=== PATIENT | male | born 1955 | race American Indian/Alaskan Native ===

== ENCOUNTER 2017-04-15 15:05 | Emergency (ER) | payer BC ==
[2017-04-15] MEDS ORDERED: NACL 0.9% 500 ML 500 ML IV ONE (16:55)
[2017-04-15 17:15] LABS: Blood Urea Nitrogen 12 mg/dL (9-20); Calcium 8.9 mg/dL (8.4-10.2); Carbon Dioxide 21 mmol/L (22-30); Chloride 101.1 mmol/L (98-107); Glucose 134 mg/dL (75-100); Sodium 139 mmol/L (137-145)
[2017-04-15 17:17] LABS: Basophils % (Auto) 0.7 % (0.0-1.8); Eosinophils % (Auto) 0.5 % (0.0-4.3); Hematocrit 45.5 % (35.5-45.6); Hemoglobin 14.7 gm/dl (11.8-15.2); Mean Corpuscular HGB Conc 32 % (32-34); Mean Corpuscular Hemoglobin 29 pg (28-32); Mean Corpuscular Volume 90 fl (84-94); Platelet Count 212 K/mm3 (140-440); Red Blood Count 5.06 M/mm3 (3.65-5.03); Red Cell Distribution Width 13.4 % (13.2-15.2); White Blood Count 7.1 K/mm3 (4.5-11.0)
[2017-04-15 17:19] LABS: Anion Gap 22 mmol/L; Potassium 5.4 mmol/L (3.6-5.0)
[2017-04-15] MEDS ORDERED: NACL 0.9% 1000 ML 1,000 ML IV ONE (18:39)
--- NOTE | 2017-04-15 18:44 | Emergency Department Report ---
ED General Adult HPI - General Chief complaint: Chest Pain Stated complaint: HI Time Seen by Provider: 04/15/17 16:43 Source: patient, family, EMS, RN notes reviewed Mode of arrival: Stretcher Limitations: No Limitations - History of Present Illness Initial comments: This is a 61-year-old male. He is previously unknown to me. Primary care Dr.: Dr. Paolo Tate Brass Cleaner: Dr. patti red ([facility]) Past medical history: Hypertension, heart disease, CABG, stents Patient reports that he takes aspirin and Plavix on a daily basis. No recent cardiac catheterization, echocardiogram or stress test. Patient is brought to the hospital by EMS. As per EMS documentation, patient indicated that he became dizzy, and "almost passed out." Patient associated this with diaphoresis. Patient indicates that this lasted around 10 minutes. The patient currently denies headache, neck pain, chest pain, abdominal pain, shortness of breath, blurry vision, loss of vision. The patient does indicate that he felt a sensation of room spinning/vertigo which has since resolved. Patient denies tinnitus, change in auditory acuity, recent upper respiratory tract infections. Patient currently denies headache, neck pain, chest pain, abdominal pain, shortness of breath, denies all complaint. There is no leg pain. There is no leg swelling. No recent trips greater than 4 hours. No recent hospital admissions. Patient indicated to EMS that the pain "felt like last heart attack he had." -: Sudden, minutes(s) Severity scale (0 -10): 0 Improves with: none Worsens with: none Associated Symptoms: diaphoresis, syncope (near syncope). denies: confusion, chest pain, cough, shortness of breath - Related Data Home Medications Medication Instructions Recorded Confirmed Last Taken Aspirin [Adult Low Dose Aspirin EC] 81 mg PO DAILY 04/15/17 04/15/17 04/15/17 AtorvaSTATin 80 mg PO DAILY 04/15/17 04/15/17 04/15/17 Cilostazol [Pletal] 100 mg PO BID 04/15/17 04/15/17 04/15/17 Clopidogrel Bisulfate [Plavix] 75 mg PO DAILY 04/15/17 04/15/17 04/15/17 Gabapentin [Neurontin] 300 mg PO Q8HR 04/15/17 04/15/17 04/15/17 ISOSORBIDE MONOnitrate [Imdur ER] 30 mg PO DAILY 04/15/17 04/15/17 04/15/17 Linagliptin [Tradjenta] 5 mg PO QDAY 04/15/17 04/15/17 04/15/17 Metformin HCl [Glucophage] 1,000 mg PO BID 04/15/17 04/15/17 04/15/17 Metoprolol Xl [Metoprolol 50 mg PO BID 04/15/17 04/15/17 04/15/17 SUCCINATE ER TAB] Ramipril 10 mg PO QDAY 04/15/17 04/15/17 04/15/17 Ranolazine [Ranexa] 500 mg PO BID 04/15/17 04/15/17 04/15/17 amLODIPine [Norvasc] 5 mg PO DAILY 04/15/17 04/15/17 04/15/17 Allergies Allergy/AdvReac Type Severity Reaction Status Date / Time No Known Allergies Allergy Unverified 04/15/17 16:18 ED Review of Systems ROS: Stated complaint: HI Other details as noted in HPI Constitutional: diaphoresis. denies: fever Eyes: denies: eye pain, eye discharge ENT: denies: ear pain, throat pain, dental pain, hearing loss, epistaxis Respiratory: denies: cough Cardiovascular: denies: chest pain Gastrointestinal: denies: vomiting Genitourinary: denies: dysuria Musculoskeletal: denies: back pain Skin: denies: lesions Neurological: weakness, vertigo Psychiatric: as per HPI ED Past Medical Hx - Medications Home Medications: Home Medications Medication Instructions Recorded Confirmed Last Taken Type Aspirin [Adult Low Dose Aspirin EC] 81 mg PO DAILY 04/15/17 04/15/17 04/15/17 History AtorvaSTATin 80 mg PO DAILY 04/15/17 04/15/17 04/15/17 History Cilostazol [Pletal] 100 mg PO BID 04/15/17 04/15/17 04/15/17 History Clopidogrel Bisulfate [Plavix] 75 mg PO DAILY 04/15/17 04/15/17 04/15/17 History Gabapentin [Neurontin] 300 mg PO Q8HR 04/15/17 04/15/17 04/15/17 History ISOSORBIDE MONOnitrate [Imdur ER] 30 mg PO DAILY 0504/15/17 04/15/17 History Linagliptin [Tradjenta] 5 mg PO QDAY 04/15/17 04/15/17 04/15/17 History Metformin HCl [Glucophage] 1,000 mg PO BID 04/15/17 04/15/17 04/15/17 History Metoprolol Xl [Metoprolol 50 mg PO BID 04/15/17 04/15/17 04/15/17 History SUCCINATE ER TAB] Ramipril 10 mg PO QDAY 04/15/17 04/15/17 04/15/17 History Ranolazine [Ranexa] 500 mg PO BID 04/15/17 04/15/17 04/15/17 History amLODIPine [Norvasc] 5 mg PO DAILY 04/15/17 04/15/17 04/15/17 History ED Physical Exam - General Limitations: No Limitations General appearance: alert, in no apparent distress - Head Head exam: Present: atraumatic, normocephalic - Eye Eye exam: Present: normal appearance, PERRL, EOMI, other (there are no visual field cuts at this time.visual acuity intact to finger counting, color perception, reading at a close distance). Absent: nystagmus - ENT ENT exam: Present: normal exam, normal orophraynx, mucous membranes moist, normal external ear exam - Neck Neck exam: Present: normal inspection, full ROM. Absent: tenderness, meningismus - Respiratory Respiratory exam: Present: normal lung sounds bilaterally. Absent: respiratory distress, wheezes, rales, rhonchi, stridor, chest wall tenderness, accessory muscle use, decreased breath sounds, prolonged expiratory - Cardiovascular Cardiovascular Exam: Present: regular rate, normal rhythm, normal heart sounds. Absent: bradycardia, tachycardia, irregular rhythm, systolic murmur, diastolic murmur, rubs, gallop - GI/Abdominal GI/Abdominal exam: Present: soft, normal bowel sounds. Absent: distended, tenderness, guarding, rebound, rigid, pulsatile mass - Rectal Rectal exam: Present: deferred - Extremities Exam Extremities exam: Present: normal inspection, full ROM, normal capillary refill. Absent: tenderness, pedal edema, joint swelling, calf tenderness - Back Exam Back exam: Present: normal inspection, full ROM. Absent: tenderness, CVA tenderness (R), CVA tenderness (L), muscle spasm, paraspinal tenderness, vertebral tenderness - Neurological Exam Neurological exam: Present: alert, oriented X3, normal gait (normal gait. Normal tandem gait. Negative pronator drift. Normal [id number]. Negative Romberg examination), other (Extraocular movements intact. Tongue midline. No facial droop. Facial sensation intact to light touch in the V1, V2, V3 distribution bilaterally. 5 and 5 strength in 4 extremities.. Sensation is intact to light touch in 4 extremities.). Absent: motor sensory deficit - Psychiatric Psychiatric exam: Present: normal affect, normal mood - Skin Skin exam: Present: warm, dry, intact, normal color. Absent: rash ED Course Vital Signs 04/15/17 04/15/17 04/15/17 16:06 16:12 16:17 Temperature 97.8 F 97.8 F Pulse Rate 73 67 Respiratory 26 H 17 Rate Blood Pressure 114/74 Blood Pressure 114/74 [Left] O2 Sat by Pulse 97 98 98 Oximetry 04/15/17 04/15/17 04/15/17 16:19 17:00 18:00 Temperature Pulse Rate 63 Respiratory 17 17 Rate Blood Pressure 112/79 112/79 Blood Pressure [Left] O2 Sat by Pulse 98 98 Oximetry 04/15/17 20:20 Temperature Pulse Rate 79 Respiratory 18 Rate Blood Pressure Blood Pressure 122/77 [Left] O2 Sat by Pulse 99 Oximetry - Reevaluation(s) Reevaluation #1: 04/15/17 18:43 Differential diagnosis: Arrhythmia, structural cardiac disease, acute coronary syndrome, transient ischemic attack, electrolyte derangement Assessment and plan: 61-year-old male with history of dizziness, sensation of near syncope, vertigo, diaphoresis. No pulmonary embolus or DVT risk factors, low risk by well's criteria. He has a GCS of 15, with an NIH score of 0. Laboratory studies unremarkable EKG abnormal, however not having chest pain, not morphologically consistent with STEMI. X-ray of the chest pending, noncontrast CT scan of the brain is pending. Plan to admit once initial data points back. Reevaluation #2: 04/15/17 20:05 laboratory studies reviewed. Patient's repeat neurologic examination is unremarkable and unchanged. Noncontrast CT scan of the brain is negative. I recommended admission to the patient for his diaphoresis, near syncope. The patient is refusing admission at this time. The patient is going to sign out AGAINST MEDICAL ADVICE. The patient is alert and oriented 3. He exhibits decision-making capacity. He is free from distracting injury. The risks of leaving, including , disability, paralysis, loss of quality of life are reviewed with the patient. He verbalizes understanding. This conversation was witnessed by the patient's , and RN Ilene almodovar The patient is instructed that he can return to the ER right away if and when he changes his mind. ED Medical Decision Making - Lab Data Result diagrams: 04/15/17 16:40 04/15/17 16:40 Vital Signs 04/15/17 04/15/17 04/15/17 16:12 16:17 16:19 Temperature 97.8 F 97.8 F Pulse Rate 73 67 Respiratory 26 H 17 17 Rate Blood Pressure 114/74 Blood Pressure 114/74 [Left] O2 Sat by Pulse 98 98 98 Oximetry Lab Results 04/15/17 04/15/17 Range/Units 16:40 16:40 WBC 7.1 (4.5-11.0) K/mm3 RBC 5.06 H (3.65-5.03) M/mm3 Hgb 14.7 (11.8-15.2) gm/dl Hct 45.5 (35.5-45.6) % MCV 90 (84-94) fl MCH 29 (28-32) pg MCHC 32 (32-34) % RDW 13.4 (13.2-15.2) % Plt Count 212 (140-440) K/mm3 Lymph % (Auto) 20.2 (13.4-35.0) % Allen % (Auto) 5.8 (0.0-7.3) % Eos % (Auto) 0.5 (0.0-4.3) % Baso % (Auto) 0.7 (0.0-1.8) % Lymph # 1.4 (1.2-5.4) K/mm3 Allen # 0.4 (0.0-0.8) K/mm3 Eos # 0.0 (0.0-0.4) K/mm3 Baso # 0.0 (0.0-0.1) K/mm3 Seg Neutrophils % 72.8 H (40.0-70.0) % Seg Neutrophils # 5.1 (1.8-7.7) K/mm3 Sodium 139 (137-145) mmol/L Potassium 5.4 H (3.6-5.0) mmol/L Chloride 101.1 (98-107) mmol/L Carbon Dioxide 21 L (22-30) mmol/L Anion Gap 22 mmol/L BUN 12 (9-20) mg/dL Creatinine 1.0 (0.8-1.5) mg/dL Estimated GFR > 60 ml/min BUN/Creatinine Ratio 12.00 % Glucose 134 H (75-100) mg/dL Calcium 8.9 (8.4-10.2) mg/dL Troponin T < 0.010 (0.00-0.029) ng/mL - EKG Data -: EKG Interpreted by Me EKG shows normal: sinus rhythm - EKG Data When compared to previous EKG there are: previous EKG unavailable 04/15/17 18:44 EKG #1: Normal sinus, 68 bpm, motion artifact, normal axis, nonspecific ST abnormality 1 and aVL, T-wave inversion in lead 3, limited by motion artifact, no chest pain, not morphologically consistent with STEMI. EKG #2: Sinus, 67 beats per minute, borderline left axis deviation, nonspecific ST abnormality, not morphologically consistent with STEMI, patient not having chest pain. - Radiology Data Radiology results: pending, report reviewed, image reviewed X-ray the chest demonstrate median sternotomy, no acute disease. Noncontrast CT scan of the brain is negative. Critical care attestation.: If time is entered above; I have spent that time in minutes in the direct care of this critically ill patient, excluding procedure time. ED Disposition Clinical Impression: Dizziness, Abnormal EKG Disposition: LEFT AGAINST MEDICAL ADVICE Is pt being admited?: No Does the pt Need Aspirin: No Condition: Undetermined Additional Instructions: As we discussed, you have left the hospital/emergency room AGAINST MEDICAL ADVICE. By leaving, you risked , disability, paralysis, permanent loss of quality of life. The ER is open 24 hours a day, 7 days a week. It never closes. Please return to the emergency room right away if and when you change your mind. If you decide not to return to the emergency room, please follow-up with the listed physician referrals as soon as possible. Referrals: PAOLO FUENTES [Other] - 3-5 Days DEBORAH WANG MD [Staff Physician] - 3-5 Days MAKENZIE KWOK MD [Staff Physician] - 3-5 Days
--- NOTE | 2017-04-15 18:50 | Admit Criteria Form ---
Admission Criteria Documentation: CARDIOLOGY GRG Clinical Indications for Admission to Inpatient Care ( Place 'X' for any and all applicable criteria): Hospital admission is needed for appropriate care of the patient because of ANY ONE of the following (1): [ ] I. Hemodynamic instability as indicated by ALL of the following (1)(2)(3) (4)(5) [ ]a) Vital signs or other findings not as expected for chronic patient condition or baseline [ ]b) Instability indicated by ANY ONE of the following: [ ]i) Hypotension [ ]ii) Symptomatic Tachycardia unresponsive to treatment ( e.g., analgesia, fluids, sedation as indicated) [ ]iii) Inadequate perfusion indicated by ANY ONE of the following: [ ] 1) Lactic acidosis (> 2 mmol/L) [ ] 2) New abnormal capillary refill (> 3 seconds) [ ] 3) Reduced urine output [ ] 4) New altered mental status [ ]iv) Orthostatic vital sign changes unresponsive to treatment (e.g., fluids) [ ]v) IV inotropic or vasopressor medication required to maintain adequate blood pressure or perfusion [ ] II. Severe heart failure as indicated by ANY ONE of the following(17)(18) [ ]a) Respiratory distress [ ]b) Hypotension [ ]c) Anasarca (refractory to outpatient therapy) [ ]d) Cardiac arrhythmias of immediate concern [ ]e) Myocardial ischemia [ ] III. Cardiac arrhythmias or findings of immediate concern indicated by ANY ONE of the following (19)(20): [ ] a) Heart rhythms that are inherently dangerous or unstable indicated by ANY ONE of the following (21)(22)(23): [ ] i) Resuscitated ventricular fibrillation or cardiac arrest [ ] ii) Ventricular escape rhythm [ ] iii) Sustained ventricular tachycardia (30 seconds or more of ventricular rhythm at greater than 100 beats per minute) [ ] iv) Nonsustained ventricular tachycardia and ANY ONE of the following: [ ] 1) Suspected cardiac ischemia as cause or consequence of ventricular tachycardia [ ] 2) In setting of acute myocarditis [ ] b) Unstable cardiac conduction defects indicated by ANY ONE of the following(23)(24)(25) [ ] i) Type II second-degree atrioventricular block [ ]ii) Third-degree atrioventricular block [ ]iii) New-onset left bundle branch block with suspected myocardial ischemia [ ]c) Any heart rhythm and ANY ONE of the following (21)(22)(26)(27) (28) [ ] i) Continuous long-term ECG monitoring needed (e.g., initiation of drug requiring monitoring for more than 24 hours) [ ] ii) Patient has automatic implanted cardioverter defibrillator that is repeatedly firing, malfunctioning, or in need of immediate adjustment of settings beyond the scope of ambulatory or observation care [ ]d) Heart rhythms of concern due to ANY ONE of the following: [ ] i) Hypotension [ ] ii) Respiratory distress [ ] iii) Association with other significant symptoms (e.g., bradycardia with syncope or ongoing dizziness, supraventricular tachycardia with chest pain (14)(15)(17) [ ] IV. Monitoring for cardiac contusion beyond the scope of observation care needed [A](30)(31)(32) [ ] V. Surgical or device complication (e.g., valve replacement complication , pacemaker dysfunction) (35)(41)(44)(45)(46) [ ] . Inpatient palliative care needed. [B](49) Also use Inpatient Palliative Care Criteria [ ] VII. Nonbacterial thrombotic (marantic) endocarditis (36)(43)(47)(48) [X] VIII. Cardiology condition, symptom, or finding for which emergency and observation care has failed or are not considered appropriate. [ ] IX. Acute valvular disease requiring inpatient as indicated by ANY ONE of the following (41) [ ]a) Acute valvular regurgitation (42) [ ]b) Noninfectious valvulitis (43) [ ]c) Obstructive valve thrombosis [ ]d) Paravalvular leak [ ]e) Other significant valvular disorder remaining after emergency or observation level of care (as appropriate) [ ]X. Pericardial disease requiring inpatient treatment as indicated by ANY ONE of the following (33)(34)(35)(36)(37) [ ]a) Suspected tamponade (38)(39)(40) [ ]b) Hemopericardium [ ]c) Other significant pericardial disorder remaining after emergency or observation level of care (as appropriate) [ ] XI. Cardiac ischemia beyond scope of emergency and observation care. [ ] XII. Hypertension requiring inpatient treatment as indicated by ANY ONE of the following (6)(7)(8) [ ]a) SBP greater than 220 mm Hg or DBP greater than 120 mmHg despite treatment [ ]b) SBP greater than 140 mm Hg or DBP greater than 100 mm Hg with evidence of acute end organ damage as indicated by ANY ONE of the following [ ] i) Altered mental status [ ] ii) Acute renal failure as indicated by new onset of ANY ONE of the following (9)(10)(11)(12)(13) [ ]1) 3-fold rise in serum creatinine from baseline [ ]2) Serum creatinine greater than 4 mg/dL ( 354 micromoles/L) with acute rise greater than 0.5 mg/dL (44.2 micromoles/L) [ ]3) Reduction of more than 75% in estimated glomerular filtration rate from baseline [ ]4) Estimated glomerular filtration rate less than 35 mL/min/1.73m2 (0.59 mL/sec/1.73m2) in child up to 18 years of age [ ]5) Cessation of urine output indicated by ALL of the following [ ]A. Adequate volume status [ ]B. Inadequate urine output as indicated by ANY ONE of the following [ ]a. Urine output less than 0.3 mL/kg/hr for 24 hours [ ]b. Anuria (urine output less than 0.1 mL/kg/hr) for 12 hours [ ] iii) Aortic dissection [ ] iv) Myocardial Ischemia [ ] v) Left ventricular heart failure [ ]vi) Retinal Hemorrhage [ ]vii) Other significant finding [ ]c) Hypertension in child requiring inpatient treatment as indicated by ALL of the following(14)(15)(16) [ ] i) Outpatient treatment not effective, not available, or not appropriate [ ]ii) SBP or DBP greater than 95th percentile for age [ ]iii) Evidence of acute end organ damage as indicated by ANY ONE of the following [ ]1) Altered mental status [ ]2) Acute renal failure as indicated by new onset of ANY ONE of the following(9)(10)(11)(12)(13) [ ]A. 3-fold rise in serum creatinine from baseline [ ]B. Serum creatinine greater than 4 mg/dL (354 micromoles/L) with acute rise greater than 0.5 mg/dL (44.2 micromoles/L) [ ]C. Reduction of more than 75% in estimated glomerular filtration rate from baseline [ ]D. Estimated glomerular filtration rate less than 35 mL/min/1.73m2 (0.59 mL/sec/1.73m2) in child up to 18 years of age [ ]E. Cessation of urine output indicated by ALL of the following [ ]a. Adequate volume status [ ]b. Inadequate urine output as indicated by ANY ONE of the following [ ]i) Urine output less than 0.3 mL/kg/hr for 24 hours [ ]ii) Anuria ( urine output less than 0.1 mL/kg/hr) for 12 hours [ ]3) Severe headache [ ]4) Visual disturbance [ ]5) Retinal hemorrhage [ ]6) Other significant finding [ ]XIII. Complications of transplanted heart indicated by ANY ONE of the following(61): [ ]a) Acute graft rejection requiring inpatient management (eg, intravenous immunosuppression)(62)(63) [ ]b) Acute graft heart failure indicated by ANY ONE of the following(64): [ ]i) Hemodynamic instability [ ]ii) Cardiac arrhythmias of immediate concern [ ]iii) Pulmonary edema that is very severe (eg, mechanical ventilation needed, imminent or likely, need for 100% oxygen to keep oxygen saturation above 90%) [ ]iv) Pulmonary edema that is persistent as indicated by ALL of the following: [ ]1) New need for oxygen therapy to keep oxygen saturation above 90% (or increased FiO2 need from baseline) [ ]2) Has not improved sufficiently with emergency department or observation care IV diuretics or other heart failure treatments[E] [ ]v) Altered mental status that is severe or persistent [ ]vi) Increased creatinine (new on laboratory test) with reduction of more than 50% in estimated glomerular filtration rate from baseline [ ]vii) Progressively (ongoing) rising creatinine (known from past laboratory test) with reduction of more than 25% in estimated glomerular filtration rate from baseline [ ]viii) Acute renal failure [ ]ix) Acute peripheral ischemia (eg, examination shows pulseless, cool, mottled, or cyanotic extremity) [ ]x) Pulmonary artery catheter monitoring needed [ ]xi) Other sign or symptom of heart failure requiring inpatient treatment (ie, too severe or not responsive to outpatient and observation care treatment) [ ]c) Infection requiring inpatient management (eg, Hemodynamic instability, need for intravenous antimicrobial treatment)(66)(67)(68)(69)(70) [ ]d) Cardiac allograft vasculopathy requiring inpatient management ( eg evidence of cardiac ischemia)(71) [ ]e) Other complication of transplanted heart (eg, stroke, severe pulmonary hypertension, severe valvular dysfunction) requiring inpatient management(72) The original [facility] [employer] content created by [facility] [employer] has been revised. The portions of the content which have been revised are identified through the use of italic text or in bold, and [facility] has neither reviewed nor approved the modified material. All other unmodified content is copyright [facility] [employer]. Please see references footnoted in the original [facility] [employer] edition 2016
[2017-04-15 19:38] LABS: INR 1.16 (0.87-1.13)
--- NOTE | 2017-04-15 19:57 | Cat Scan Report ---
FINAL REPORT EXAM: CT HEAD/BRAIN WO CON HISTORY: dizzy TECHNIQUE: Standard unenhanced CT of the head at 5.0 millimeter axial increments PRIORS: None. FINDINGS: The ventricular system is normal in size and configuration. There is mild cerebral atrophy of the frontal lobes. There is no evidence for mass lesion, mass effect, midline shift, acute intracranial hemorrhage, or acute ischemia/ infarction. Visualized paranasal sinuses are clear. IMPRESSION: Negative CT of the head. No acute intracranial process noted. Mild frontal lobe atrophy bilaterally.
[2017-04-15 20:21] VITALS: BP 122/77
--- NOTE | 2017-04-16 09:33 | XRay Report ---
AP CHEST: HISTORY: Dizziness, shortness of breath AP view of the chest demonstrates a normal mediastinal and cardiac contour with clear lungs and normal bony and soft tissue structures. Previous cardiac surgery changes are noted. IMPRESSION: Unremarkable AP chest.
== END 2017-04-15 20:53 | disposition left against medical advice (07) ==
LOC: ED 15:05
DX: R42 Dizziness and giddiness (principal); R94.31 Abnormal electrocardiogram [ECG] [EKG]; Z79.82 Long term (current) use of aspirin
CPT/HCPCS: 36415; 70450; 71010; 80048; 84484; 85025; 85610; 93005; 93010; 99285; J7040